=== PATIENT | female | born 1955 | race Caucasian/White ===

== ENCOUNTER 2020-12-11 21:47 | Inpatient (IN) | payer MEDICARE, OTHER ==
[~2020-12-11] VITALS: Ht 160 cm; Wt 112.5 kg
[2020-12-11] MEDS ORDERED: 0.9% SODIUM CHLORIDE 10 ML SYRINGE IVP PRN (22:30)
[2020-12-11] MEDS ORDERED: PIPERACILLIN/TAZO 3.375 GM/D5W 50 ML IV ONE (22:30)
[2020-12-11] MEDS ORDERED: VANCOMYCIN HCL 1.5 GM in DEXTROSE 5%-WATER 250 ML IV ONE (22:30)
[2020-12-11 22:34] LABS: BASOPHILS % (AUTO) 0.2 % (0.0-2.0); EOSINOPHILS % (AUTO) 0.9 % (1.0-6.0); HEMATOCRIT 32.5 % (36-46); HEMOGLOBIN 10.4 g/dL (12.0-16.0); LYMPHOCYTES # (AUTO) 2.3 K/uL (1.0-4.8); LYMPHOCYTES % (AUTO) 18.2 % (22.0-44.0); MEAN CORPUSCULAR HEMOGLOBIN 30.8 pg (26.0-34.0); MEAN CORPUSCULAR HGB CONC 32.1 G/dL (31.0-37.0); MEAN CORPUSCULAR VOLUME 96 fL (80-100); MONOCYTES # (AUTO) 0.8 K/uL (0.1-1.0); MONOCYTES % (AUTO) 6.3 % (2.0-9.0); NEUTROPHILS # (AUTO) 9.6 K/uL (1.8-7.7); NEUTROPHILS % (AUTO) 74.4 % (40.0-70.0); PLATELET COUNT (AUTO) 177 K/uL (150-450); RED BLOOD CELL COUNT(AUTO) 3.38 MIL/uL (4.00-5.20); RED CELL DISTRIBUTION WIDTH 14.4 % (11.5-14.5)
[2020-12-11 22:46] LABS: CALCIUM, TOTAL 9.4 mg/dL (8.8-10.5); CREATININE 3.42 mg/dL (0.60-1.30); POTASSIUM 4.4 mmol/L (3.5-5.1)
[2020-12-11 22:47] LABS: D-DIMER 2.63 mg/L FEU (0.00-0.50); INR 1.1 (0.9-1.1); PROTHROMBIN TIME 11.5 SEC (9.4-11.6)
[2020-12-11 23:09] LABS: COVID AG,FIA SOURCE NASOPHARYNGEAL
[2020-12-11 23:13] LABS: ALBUMIN 3.2 g/dL (3.4-5.0); BILIRUBIN,TOTAL 2.8 mg/dL (0.1-1.0); TOTAL PROTEIN, SERUM 7.6 g/dL (6.4-8.2)
[2020-12-11] MEDS ORDERED: ONDANSETRON HCL 4 MG/2 ML VIAL IVP PRN (23:45)
[2020-12-11] MEDS ORDERED: ACETAMINOPHEN 325 MG TABLET PO PRN (23:45)
[2020-12-11] MEDS ORDERED: HEPARIN SODIUM,PORCINE 5,000 UNITS/ML VIAL IVP PRN ×2 (23:45)
[2020-12-11] MEDS ORDERED: HEPARIN SODIUM,PORCINE 5,000 UNITS/ML VIAL IVP ONE (23:45)
[2020-12-11] MEDS ORDERED: HEPARIN SODIUM 25000 UNITS/D5W 250 ML IV PRN (23:45)
[2020-12-12] MEDS ORDERED: DEXTROSE 50%-WATER 25 GM/50 ML SYRINGE IVP PRN (00:30)
[2020-12-12] MEDS ORDERED: ALBUTEROL SULFATE 2.5 MG/0.5 ML NEB SOLUTION NEB PRN (00:30)
[2020-12-12] MEDS ORDERED: ONDANSETRON HCL 4 MG/2 ML VIAL IVP PRN (00:30)
[2020-12-12] MEDS ORDERED: *CLINICAL-CEFEPIME DOSING CLINICAL ONE (00:30)
[2020-12-12] MEDS ORDERED: ACETAMINOPHEN 325 MG TABLET PO PRN (00:30)
[2020-12-12] MEDS ORDERED: IPRATROPIUM BROMIDE 0.5 MG/2.5 ML NEB SOLUTION NEB PRN (00:30)
[2020-12-12 00:41] LABS: ABG A-A DIFF O2 121.7 mmHg (10-20.0); ABG BASE EXCESS -4.6 mmol/L (-2.0-3.0); ABG CARBOXYHEMOGLOBIN 0.9 % (0.0-1.5); ABG HCO3 20.2 mmol/L (22.0-26.0); ABG METHEMOGLOBIN 0.3 % (0.0-1.5); ABG OXYGEN CONTENT 15.3 mL/dL (15.0-23.0); ABG OXYHEMOGLOBIN 95.8 % (94.0-100.0); ABG PCO2 61 mmHg (35-45); ABG TOTAL HEMOGLOBIN 11.3 G/dL (12.0-18.0); PO2, ARTERIAL BG 92.9 mmHg (79.0-87.0); SOURCE, BLOOD GAS ARTERIAL; TEMPERATURE, FAHRENHEIT, BG 98.6 FAHREN (96.0-98.6)
[2020-12-12 00:42] LABS: SITE, BLOOD GAS LFT RADIAL
[2020-12-12 00:43] LABS: CPAP, BG 14 cm H2O; O2 DEVICE,BLOOD GAS CPAP (ROOM AIR)
[2020-12-12] MEDS ORDERED: VANCOMYCIN HCL 1 GM/D5% WATER 200 ML IV PRN (00:45)
[2020-12-12 01:18] LABS: APPEARANCE,URINE TURBID (CLEAR); BILIRUBIN,URINE NEGATIVE (NEGATIVE); GLUCOSE, URINE (UA) 250 mg/dL (NEGATIVE); KETONES,URINE NEGATIVE (NEGATIVE); LEUKOCYTE ESTERASE ,URINE MODERATE (NEGATIVE); NITRATE,URINE NEGATIVE (NEGATIVE); OCCULT BLOOD,URINE SMALL (NEGATIVE); PROTEIN,URINE TRACE (NEGATIVE); UROBILINOGEN,URINE 0.2 mg/dL (<=1.0)
[2020-12-12 01:24] LABS: CREATININE,URINE RANDOM 70.6 mg/dL (30.0-125.0)
[2020-12-12 01:36] LABS: RBC,URINE 0-2 /HPF (0-2)
[2020-12-12 01:37] LABS: BACTERIA,URINE Many /HPF (None Seen)
[2020-12-12] MEDS ORDERED: VANCOMYCIN HCL 750 MG in DEXTROSE 5%-WATER 250 ML IV ONE (03:00)
[2020-12-12 03:12] VITALS: BP 102/64
[2020-12-12] MEDS ORDERED: SODIUM CHLORIDE 0.9% 500 ML IV ONE (04:14)
[2020-12-12] MEDS ORDERED: CEFEPIME HCL 1 GM in DEXTROSE 5%-WATER 50 ML IV SCH (05:00)
[2020-12-12] MEDS ORDERED: MORPHINE SULFATE 10 MG/5 ML SOLUTION UDCUP SL PRN (06:00)
[2020-12-12] MEDS: INSULIN LISPRO 100 UNITS/ML SQ PRN ×3 (06:03→20:43)
[2020-12-12 06:49] LABS: GLUCOMETER DEV NAME(LOC) 6S.1; GLUCOSE,POINT OF CARE 320 MG/DL (70-110)
[2020-12-12 07:52] VITALS: BP 87/65
[2020-12-12] MEDS ORDERED: SODIUM CHLORIDE 0.9% 1,000 ML IV SCH (08:15)
[2020-12-12] MEDS: DEXTROSE 5%-0.9% SODIUM CHL 1,000 ML IV SCH (14:35)
[2020-12-12 15:57] VITALS: BP 65/40
[2020-12-12] MEDS ORDERED: SODIUM CHLORIDE 0.9% 250 ML IV ONE ×2 (16:15→19:15)
[2020-12-12 17:17] VITALS: BP 85/39
[2020-12-12 17:56] VITALS: BP 90/34
[2020-12-12] MEDS: CefTRIAXone 1 GM/DEXTROSE 50 ML IV SCH (18:16)
[2020-12-12 20:08] LABS: GLUCOMETER DEV NAME(LOC) 6N.1; GLUCOSE,POINT OF CARE 285 MG/DL (70-110)
[2020-12-12 20:08] LABS: GLUCOMETER DEV NAME(LOC) 6N.1; GLUCOSE,POINT OF CARE 252 MG/DL (70-110)
[2020-12-12 20:16] VITALS: BP 81/42
[2020-12-13 00:17] LABS: GLUCOMETER DEV NAME(LOC) 6N.1; GLUCOSE,POINT OF CARE 231 MG/DL (70-110)
[2020-12-13 04:44] VITALS: BP 84/42
[2020-12-13] MEDS: INSULIN LISPRO 100 UNITS/ML SQ PRN ×2 (05:58→11:29)
[2020-12-13] MEDS: DEXTROSE 5%-0.9% SODIUM CHL 1,000 ML IV SCH ×2 (05:58→10:38)
[2020-12-13 08:01] VITALS: BP 80/32
[2020-12-13 14:12] LABS: ABG A-A DIFF O2 80.7 mmHg (10-20.0); ABG BASE EXCESS -10.7 mmol/L (-2.0-3.0); ABG CARBOXYHEMOGLOBIN 0.2 % (0.0-1.5); ABG METHEMOGLOBIN 0.4 % (0.0-1.5); ABG OXYGEN CONTENT 14.8 mL/dL (15.0-23.0); ABG OXYGEN SATURATION 95.7 % (95.0-98.0); ABG OXYHEMOGLOBIN 95.1 % (94.0-100.0); ABG PCO2 53 mmHg (35-45); PO2, ARTERIAL BG 85.8 mmHg (79.0-87.0); SOURCE, BLOOD GAS ARTERIAL; TEMPERATURE, FAHRENHEIT, BG 97.4 FAHREN (96.0-98.6)
[2020-12-13 14:15] LABS: ABG PH 7.151 (7.35-7.450); O2 DEVICE,BLOOD GAS CANNULA (ROOM AIR); SITE, BLOOD GAS LFT RADIAL
[2020-12-13] MEDS ORDERED: SODIUM BICARBONATE 650 MG TABLET PO SCH (14:30)
[2020-12-13 15:22] VITALS: BP 84/65
[2020-12-13] MEDS: CefTRIAXone 1 GM/DEXTROSE 50 ML IV SCH (15:22)
[2020-12-13] MEDS ORDERED: SODIUM BICARBONATE [ADULT] 8.4% 50 MEQ/50 ML SYRINGE IVP ONE (17:15)
[2020-12-13] MEDS ORDERED: RINGERS SOLUTION,LACTATED 1,000 ML IV SCH (18:00)
[2020-12-13 18:19] LABS: BASOPHILS % (AUTO) 0.6 % (0.0-2.0); HEMATOCRIT 30.2 % (36-46); HEMOGLOBIN 9.7 g/dL (12.0-16.0); LYMPHOCYTES # (AUTO) 1.4 K/uL (1.0-4.8); MEAN CORPUSCULAR HEMOGLOBIN 31.1 pg (26.0-34.0); MEAN CORPUSCULAR VOLUME 97 fL (80-100); MONOCYTES # (AUTO) 0.6 K/uL (0.1-1.0); MONOCYTES % (AUTO) 6.9 % (2.0-9.0); NEUTROPHILS # (AUTO) 6.3 K/uL (1.8-7.7); NEUTROPHILS % (AUTO) 72.5 % (40.0-70.0); PLATELET COUNT (AUTO) 182 K/uL (150-450); RED BLOOD CELL COUNT(AUTO) 3.11 MIL/uL (4.00-5.20); RED CELL DISTRIBUTION WIDTH 14.8 % (11.5-14.5)
[2020-12-13 18:29] LABS: CALCIUM, TOTAL 8.1 mg/dL (8.8-10.5); CREATININE 6.91 mg/dL (0.60-1.30); POTASSIUM 4.6 mmol/L (3.5-5.1)
[2020-12-13 18:34] LABS: ALBUMIN 2.3 g/dL (3.4-5.0); BILIRUBIN,TOTAL 0.4 mg/dL (0.1-1.0); TOTAL PROTEIN, SERUM 6.4 g/dL (6.4-8.2)
[2020-12-13 19:25] LABS: GLUCOMETER DEV NAME(LOC) 6S.1; GLUCOSE,POINT OF CARE 237 MG/DL (70-110)
[2020-12-13 19:25] LABS: GLUCOMETER DEV NAME(LOC) 6N.1; GLUCOSE,POINT OF CARE 257 MG/DL (70-110)
[2020-12-13 19:25] LABS: GLUCOMETER DEV NAME(LOC) 6S.1; GLUCOSE,POINT OF CARE 252 MG/DL (70-110)
[2020-12-13 20:00] VITALS: BP 81/111
[2020-12-13 22:43] LABS: GLUCOSE,POINT OF CARE 169 MG/DL (70-110)
[2020-12-14] VITALS (7 sets, daily range): BP systolic 91–150; BP diastolic 46–73
[2020-12-14] MEDS: SODIUM CHLORIDE 0.9% 1,000 ML IV SCH ×2 (00:47→13:44)
[2020-12-14 05:47] LABS: BASOPHILS % (AUTO) 0.5 % (0.0-2.0); EOSINOPHILS % (AUTO) 6.3 % (1.0-6.0); HEMATOCRIT 28.6 % (36-46); HEMOGLOBIN 9.1 g/dL (12.0-16.0); LYMPHOCYTES # (AUTO) 1.4 K/uL (1.0-4.8); LYMPHOCYTES % (AUTO) 19.5 % (22.0-44.0); MEAN CORPUSCULAR VOLUME 97 fL (80-100); MONOCYTES # (AUTO) 0.6 K/uL (0.1-1.0); MONOCYTES % (AUTO) 7.9 % (2.0-9.0); NEUTROPHILS # (AUTO) 4.7 K/uL (1.8-7.7); NEUTROPHILS % (AUTO) 65.8 % (40.0-70.0); PLATELET COUNT (AUTO) 176 K/uL (150-450); RED BLOOD CELL COUNT(AUTO) 2.95 MIL/uL (4.00-5.20); RED CELL DISTRIBUTION WIDTH 14.5 % (11.5-14.5)
[2020-12-14 06:11] LABS: ALBUMIN 2.3 g/dL (3.4-5.0); BILIRUBIN,TOTAL 0.4 mg/dL (0.1-1.0); CALCIUM, TOTAL 8.3 mg/dL (8.8-10.5); CREATININE 7.77 mg/dL (0.60-1.30); POTASSIUM 4.4 mmol/L (3.5-5.1); TOTAL PROTEIN, SERUM 6.3 g/dL (6.4-8.2)
[2020-12-14 06:31] LABS: PHOSPHORUS 10.2 mg/dL (2.5-4.9)
[2020-12-14 06:52] LABS: GLUCOSE,POINT OF CARE 152 MG/DL (70-110)
[2020-12-14] MEDS ORDERED: FLUMAZENIL 0.1 MG/ML 5 ML VIAL IVP ONE (11:00)
[2020-12-14] MEDS ORDERED: FentaNYL CITRATE PF 100 MCG/2 ML VIAL ONE (11:00)
[2020-12-14] MEDS ORDERED: NALOXONE HCL 0.4 MG/ML VIAL ONE (11:00)
[2020-12-14] MEDS ORDERED: MIDAZOLAM HCL 2 MG/2 ML VIAL ONE (11:00)
[2020-12-14 11:26] LABS: GLUCOSE,POINT OF CARE 138 MG/DL (70-110)
[2020-12-14] MEDS ORDERED: HEPARIN SODIUM,PORCINE 1,000 UNITS/ML 10 ML VIAL ONE (11:58)
[2020-12-14] MEDS ORDERED: LIDOCAINE/PF 1% 30 ML VIAL ONE (11:59)
[2020-12-14] MEDS ORDERED: HEPARIN SODIUM 1000 UNITS/NS 500 ML ONE (12:33)
[2020-12-14 16:39] LABS: GLUCOSE,POINT OF CARE 152 MG/DL (70-110)
[2020-12-14] MEDS: CefTRIAXone 1 GM/DEXTROSE 50 ML IV SCH (16:47)
[2020-12-14 17:37] LABS: GLUCOSE,POINT OF CARE 120 MG/DL (70-110)
[2020-12-14] MEDS ORDERED: HEPARIN SODIUM,PORCINE 1,000 UNITS/ML VIAL IVP ONE (17:52)
[2020-12-14 20:33] LABS: GLUCOSE,POINT OF CARE 110 MG/DL (70-110)
[2020-12-15] VITALS (7 sets, daily range): BP systolic 105–137; BP diastolic 56–71
[2020-12-15] MEDS: SODIUM CHLORIDE 0.9% 1,000 ML IV SCH ×2 (02:00→13:54)
[2020-12-15 05:54] LABS: BILIRUBIN,TOTAL 0.5 mg/dL (0.1-1.0); CALCIUM, TOTAL 8.1 mg/dL (8.8-10.5); CREATININE 6.24 mg/dL (0.60-1.30); POTASSIUM 5.8 mmol/L (3.5-5.1); TOTAL PROTEIN, SERUM 6.4 g/dL (6.4-8.2)
[2020-12-15] MEDS: ACETAMINOPHEN 325 MG TABLET PO PRN ×2 (09:58→17:46)
[2020-12-15 13:16] LABS: GLUCOSE,POINT OF CARE 120 MG/DL (70-110)
[2020-12-15] MEDS: CefTRIAXone 1 GM/DEXTROSE 50 ML IV SCH (16:00)
[2020-12-15 19:29] LABS: GLUCOSE,POINT OF CARE 124 MG/DL (70-110)
[2020-12-15 22:52] LABS: GLUCOSE,POINT OF CARE 127 MG/DL (70-110)
[2020-12-16] VITALS (8 sets, daily range): BP systolic 139–171; BP diastolic 67–90
[2020-12-16 05:30] LABS: ALBUMIN 2.4 g/dL (3.4-5.0); BILIRUBIN,TOTAL 0.3 mg/dL (0.1-1.0); CALCIUM, TOTAL 8.5 mg/dL (8.8-10.5); CREATININE 4.38 mg/dL (0.60-1.30); POTASSIUM 4.1 mmol/L (3.5-5.1); TOTAL PROTEIN, SERUM 6.7 g/dL (6.4-8.2)
[2020-12-16] MEDS ORDERED: ETHYL ALCOHOL 62% ANTISEPTIC NASAL INHALANT 0.6 ML AMPUL NASAL SCH (09:00)
[2020-12-16] MEDS ORDERED: *CLINICAL-MEROPENEM DOSING CLINICAL ONE (12:00)
[2020-12-16] MEDS ORDERED: MEROPENEM 1 GM in SODIUM CHLORIDE 0.9% 100 ML IV ONE (12:15)
[2020-12-16 12:46] LABS: GLUCOSE,POINT OF CARE 105 MG/DL (70-110)
[2020-12-16] MEDS: CefTRIAXone 1 GM/DEXTROSE 50 ML IV SCH (16:40)
[2020-12-16] MEDS ORDERED: HEPARIN SODIUM,PORCINE 1,000 UNITS/ML VIAL IVP ONE (18:11)
[2020-12-16 19:47] LABS: GLUCOSE,POINT OF CARE 111 MG/DL (70-110)
[2020-12-16] MEDS ORDERED: DEXTROSE 5%-0.9% SODIUM CHL 1,000 ML IV SCH (20:00)
[2020-12-16] MEDS ORDERED: RINGERS SOLUTION,LACTATED 1,000 ML IV SCH (20:00)
[2020-12-16 20:29] LABS: BASOPHILS % (AUTO) 0.8 % (0.0-2.0); EOSINOPHILS % (AUTO) 4.2 % (1.0-6.0); HEMATOCRIT 34.9 % (36-46); HEMOGLOBIN 11.2 g/dL (12.0-16.0); LYMPHOCYTES # (AUTO) 1.5 K/uL (1.0-4.8); MEAN CORPUSCULAR HEMOGLOBIN 30.9 pg (26.0-34.0); MEAN CORPUSCULAR HGB CONC 32.2 G/dL (31.0-37.0); MEAN CORPUSCULAR VOLUME 96 fL (80-100); MONOCYTES # (AUTO) 0.6 K/uL (0.1-1.0); MONOCYTES % (AUTO) 8.9 % (2.0-9.0); NEUTROPHILS % (AUTO) 62.1 % (40.0-70.0); PLATELET COUNT (AUTO) 188 K/uL (150-450); RED BLOOD CELL COUNT(AUTO) 3.63 MIL/uL (4.00-5.20); RED CELL DISTRIBUTION WIDTH 14.2 % (11.5-14.5)
[2020-12-16 20:39] LABS: CALCIUM, TOTAL 8.9 mg/dL (8.8-10.5); CREATININE 5.28 mg/dL (0.60-1.30); POTASSIUM 4.7 mmol/L (3.5-5.1)
[2020-12-16 20:47] LABS: ALBUMIN 2.7 g/dL (3.4-5.0); BILIRUBIN,TOTAL 0.3 mg/dL (0.1-1.0); MAGNESIUM 2.2 mg/dL (1.80-2.40); TOTAL PROTEIN, SERUM 7.4 g/dL (6.4-8.2)
[2020-12-16 21:41] LABS: GLUCOMETER DEV NAME(LOC) 5N.1C; GLUCOSE,POINT OF CARE 120 MG/DL (70-110)
[2020-12-17 04:26] VITALS: BP 146/75
[2020-12-17 07:13] VITALS: BP 158/85
[2020-12-17 07:15] LABS: GLUCOMETER DEV NAME(LOC) 5N.1C; GLUCOSE,POINT OF CARE 127 MG/DL (70-110)
[2020-12-17 07:45] LABS: ALBUMIN 2.7 g/dL (3.4-5.0); BILIRUBIN,TOTAL 0.3 mg/dL (0.1-1.0); CREATININE 5.58 mg/dL (0.60-1.30); POTASSIUM 4.8 mmol/L (3.5-5.1); TOTAL PROTEIN, SERUM 7.3 g/dL (6.4-8.2)
[2020-12-17] MEDS: EPOETIN ALFA 10,000 UNITS/ML VIAL SQ SCH (09:16)
[2020-12-17] MEDS ORDERED: ACETAMINOPHEN 650 MG RECTAL SUPPOSITORY PR PRN (10:15)
[2020-12-17 10:59] VITALS: BP 157/83
[2020-12-17 14:40] VITALS: BP 146/78
[2020-12-17] MEDS: MEROPENEM 500 MG in SODIUM CHLORIDE 0.9% 50 ML IV SCH (16:58)
[2020-12-17] MEDS ORDERED: SODIUM CHLORIDE 0.9% 250 ML IV ONE (17:07)
[2020-12-17] MEDS ORDERED: SODIUM CHLORIDE 0.9% 1,000 ML ONE (18:27)
[2020-12-17 19:07] VITALS: BP 171/61
[2020-12-17 20:03] LABS: GLUCOMETER DEV NAME(LOC) 5S.2B; GLUCOSE,POINT OF CARE 148 MG/DL (70-110)
[2020-12-17 23:50] VITALS: BP 119/56
[2020-12-18 04:23] VITALS: BP 146/66
[2020-12-18 06:58] LABS: GLUCOMETER DEV NAME(LOC) 5S.2B; GLUCOSE,POINT OF CARE 148 MG/DL (70-110)
[2020-12-18 07:03] LABS: ALBUMIN 2.7 g/dL (3.4-5.0); BILIRUBIN,TOTAL 0.4 mg/dL (0.1-1.0); CALCIUM, TOTAL 8.7 mg/dL (8.8-10.5); CREATININE 3.16 mg/dL (0.60-1.30); POTASSIUM 4.6 mmol/L (3.5-5.1)
[2020-12-18 08:35] VITALS: BP 156/90
[2020-12-18] MEDS ORDERED: FLUMAZENIL 0.1 MG/ML 5 ML VIAL IVP ONE (10:35)
[2020-12-18] MEDS ORDERED: MIDAZOLAM HCL 2 MG/2 ML VIAL ONE (10:35)
[2020-12-18] MEDS ORDERED: NALOXONE HCL 0.4 MG/ML VIAL ONE (10:35)
[2020-12-18] MEDS ORDERED: FentaNYL CITRATE PF 100 MCG/2 ML VIAL ONE (10:35)
[2020-12-18] MEDS ORDERED: LIDOCAINE 1%/EPI 1:200,000/PF 10 ML VIAL ONE (11:54)
[2020-12-18] MEDS ORDERED: HEPARIN SODIUM,PORCINE 1,000 UNITS/ML 10 ML VIAL ONE (11:55)
[2020-12-18] MEDS ORDERED: MIDAZOLAM HCL 2 MG/2 ML VIAL IVP ONE ×2 (12:00→12:20)
[2020-12-18] MEDS ORDERED: FentaNYL CITRATE PF 100 MCG/2 ML VIAL IVP ONE (12:20)
[2020-12-18 12:30] VITALS: BP 134/67
[2020-12-18 15:30] VITALS: BP 153/74
[2020-12-18] MEDS ORDERED: MANNITOL 25%-12.5 GM/50 ML VIAL IVP ONE (15:32)
[2020-12-18] MEDS ORDERED: HEPARIN SODIUM,PORCINE 1,000 UNITS/ML VIAL IVP ONE (15:33)
[2020-12-18] MEDS: MEROPENEM 500 MG in SODIUM CHLORIDE 0.9% 50 ML IV SCH (16:33)
[2020-12-18 17:46] LABS: GLUCOMETER DEV NAME(LOC) 5S.2B; GLUCOSE,POINT OF CARE 150 MG/DL (70-110)
[2020-12-18 17:46] LABS: GLUCOMETER DEV NAME(LOC) 5S.2B; GLUCOSE,POINT OF CARE 126 MG/DL (70-110)
[2020-12-18 19:41] VITALS: BP 151/78
[2020-12-18 23:28] VITALS: BP 142/73
[2020-12-18 23:43] LABS: GLUCOMETER DEV NAME(LOC) 5S.1; GLUCOSE,POINT OF CARE 128 MG/DL (70-110)
[2020-12-19 03:01] VITALS: BP 150/74
[2020-12-19 08:12] LABS: GLUCOMETER DEV NAME(LOC) 5N.1C; GLUCOSE,POINT OF CARE 118 MG/DL (70-110)
[2020-12-19 08:18] VITALS: BP 157/88
[2020-12-19] MEDS: EPOETIN ALFA 10,000 UNITS/ML VIAL SQ SCH (10:16)
[2020-12-19 10:26] LABS: BASOPHILS % (AUTO) 0.9 % (0.0-2.0); EOSINOPHILS % (AUTO) 5.4 % (1.0-6.0); HEMATOCRIT 30.9 % (36-46); LYMPHOCYTES # (AUTO) 1.8 K/uL (1.0-4.8); MEAN CORPUSCULAR HEMOGLOBIN 30.9 pg (26.0-34.0); MEAN CORPUSCULAR HGB CONC 32.3 G/dL (31.0-37.0); MEAN CORPUSCULAR VOLUME 96 fL (80-100); MONOCYTES # (AUTO) 0.5 K/uL (0.1-1.0); MONOCYTES % (AUTO) 6.9 % (2.0-9.0); NEUTROPHILS # (AUTO) 4.7 K/uL (1.8-7.7); NEUTROPHILS % (AUTO) 62.8 % (40.0-70.0); PLATELET COUNT (AUTO) 231 K/uL (150-450); RED BLOOD CELL COUNT(AUTO) 3.23 MIL/uL (4.00-5.20); RED CELL DISTRIBUTION WIDTH 14.1 % (11.5-14.5)
[2020-12-19 10:42] LABS: ALBUMIN 2.7 g/dL (3.4-5.0); BILIRUBIN,TOTAL 0.4 mg/dL (0.1-1.0); CALCIUM, TOTAL 8.6 mg/dL (8.8-10.5); CREATININE 3.89 mg/dL (0.60-1.30); TOTAL PROTEIN, SERUM 6.9 g/dL (6.4-8.2)
[2020-12-19] MEDS ORDERED: FentaNYL CITRATE PF 100 MCG/2 ML VIAL IVP ONE (12:00)
[2020-12-19] MEDS ORDERED: HEPARIN SODIUM,PORCINE 1,000 UNITS/ML VIAL IVP ONE ×3 (12:00→14:15)
[2020-12-19] MEDS ORDERED: MIDAZOLAM HCL 2 MG/2 ML VIAL IVP ONE (12:00)
[2020-12-19 12:02] VITALS: BP 110/62
[2020-12-19] MEDS ORDERED: MANNITOL 25%-12.5 GM/50 ML VIAL IVP PRN (14:15)
[2020-12-19 16:26] VITALS: BP 143/72
[2020-12-19] MEDS: MEROPENEM 500 MG in SODIUM CHLORIDE 0.9% 50 ML IV SCH (17:30)
[2020-12-19 19:08] LABS: GLUCOMETER DEV NAME(LOC) 5S.2B; GLUCOSE,POINT OF CARE 109 MG/DL (70-110)
[2020-12-19 20:05] VITALS: BP 141/74
[2020-12-19 21:49] LABS: GLUCOMETER DEV NAME(LOC) 5S.1; GLUCOSE,POINT OF CARE 113 MG/DL (70-110)
[2020-12-19 21:49] LABS: GLUCOMETER DEV NAME(LOC) 5S.1; GLUCOSE,POINT OF CARE 112 MG/DL (70-110)
[2020-12-20 00:20] VITALS: BP 114/81
[2020-12-20 04:33] VITALS: BP 136/66
[2020-12-20 06:17] LABS: GLUCOMETER DEV NAME(LOC) 5N.3; GLUCOSE,POINT OF CARE 120 MG/DL (70-110)
[2020-12-20 08:26] VITALS: BP 140/70
[2020-12-20 10:28] LABS: ALBUMIN 2.8 g/dL (3.4-5.0); BILIRUBIN,TOTAL 0.4 mg/dL (0.1-1.0); CALCIUM, TOTAL 9.3 mg/dL (8.8-10.5); CREATININE 2.63 mg/dL (0.60-1.30); TOTAL PROTEIN, SERUM 6.8 g/dL (6.4-8.2)
[2020-12-20] MEDS: HEPARIN SODIUM,PORCINE 5,000 UNITS/ML VIAL SQ SCH ×2 (10:51→16:34)
[2020-12-20 11:03] LABS: BASOPHILS % (AUTO) 0.8 % (0.0-2.0); EOSINOPHILS % (AUTO) 5.1 % (1.0-6.0); HEMATOCRIT 33.9 % (36-46); HEMOGLOBIN 10.8 g/dL (12.0-16.0); LYMPHOCYTES # (AUTO) 1.8 K/uL (1.0-4.8); LYMPHOCYTES % (AUTO) 25.5 % (22.0-44.0); MEAN CORPUSCULAR HEMOGLOBIN 30.7 pg (26.0-34.0); MEAN CORPUSCULAR HGB CONC 31.9 G/dL (31.0-37.0); MEAN CORPUSCULAR VOLUME 96 fL (80-100); MONOCYTES # (AUTO) 0.5 K/uL (0.1-1.0); MONOCYTES % (AUTO) 7.7 % (2.0-9.0); NEUTROPHILS # (AUTO) 4.2 K/uL (1.8-7.7); NEUTROPHILS % (AUTO) 60.9 % (40.0-70.0); PLATELET COUNT (AUTO) 239 K/uL (150-450); RED BLOOD CELL COUNT(AUTO) 3.52 MIL/uL (4.00-5.20); RED CELL DISTRIBUTION WIDTH 14.6 % (11.5-14.5)
[2020-12-20 12:06] VITALS: BP 130/72
[2020-12-20] MEDS: INSULIN LISPRO 100 UNITS/ML SQ PRN ×2 (12:24→18:05)
[2020-12-20 13:10] LABS: GLUCOMETER DEV NAME(LOC) 5S.2B; GLUCOSE,POINT OF CARE 148 MG/DL (70-110)
[2020-12-20] MEDS ORDERED: ACETAMINOPHEN 325 MG TABLET PO PRN (13:30)
[2020-12-20] MEDS ORDERED: EPOE10003 SQ (14:22)
[2020-12-20] MEDS ORDERED: HEPA500018 SQ (14:23)
[2020-12-20] MEDS ORDERED: MERO500P IVPB (14:25)
[2020-12-20] MEDS ORDERED: ACET-2247 PO (14:26)
[2020-12-20] MEDS ORDERED: A20IH1 NEB (14:26)
[2020-12-20] MEDS ORDERED: D50SYG IVP (14:31)
[2020-12-20] MEDS ORDERED: IPRNEB IH (14:50)
[2020-12-20] MEDS ORDERED: INSU100V SQ (14:54)
[2020-12-20 15:33] VITALS: BP 123/71
[2020-12-20] MEDS: MEROPENEM 500 MG in SODIUM CHLORIDE 0.9% 50 ML IV SCH (16:34)
[2020-12-20 16:35] LABS: ABG A-A DIFF O2 151.4 mmHg (10-20.0); ABG BASE EXCESS -4.3 mmol/L (-2.0-3.0); ABG CARBOXYHEMOGLOBIN 0.4 % (0.0-1.5); ABG HCO3 20.9 mmol/L (22.0-26.0); ABG METHEMOGLOBIN 0.3 % (0.0-1.5); ABG OXYGEN CONTENT 14.8 mL/dL (15.0-23.0); ABG OXYHEMOGLOBIN 96.3 % (94.0-100.0); ABG PCO2 46 mmHg (35-45); ABG TOTAL HEMOGLOBIN 10.8 G/dL (12.0-18.0); PO2, ARTERIAL BG 95.4 mmHg (79.0-87.0); SOURCE, BLOOD GAS ARTERIAL; TEMPERATURE, FAHRENHEIT, BG 98.6 FAHREN (96.0-98.6)
[2020-12-20 16:36] LABS: O2 DEVICE,BLOOD GAS CANNULA (ROOM AIR); SITE, BLOOD GAS LFT RADIAL
[2020-12-20 19:10] LABS: GLUCOMETER DEV NAME(LOC) 5S.1; GLUCOSE,POINT OF CARE 177 MG/DL (70-110)
== END 2020-12-20 19:15 | DRG 871 ==
LOC: EMS 21:51 → UNDOADMIN 12-12 00:31 → ICU 12-12 00:31 → 6N 12-12 00:31 → ICU 12-13 17:01 → 5S 12-16 19:05
PROVIDERS: ADMIT Internal Medicine; ATTEND Internal Medicine
PROC: 5A09357 Assistance with Respiratory Ventilation, Less than 24 Consecutive Hours, Continuous Positive Airway Pressure (ICD-10-PCS; principal; 2020-12-14)
PROC: 5A1D70Z Performance of Urinary Filtration, Intermittent, Less than 6 Hours Per Day (ICD-10-PCS; 2020-12-14)
PROC: 5A1D70Z Performance of Urinary Filtration, Intermittent, Less than 6 Hours Per Day (ICD-10-PCS; 2020-12-15)
PROC: 5A1D70Z Performance of Urinary Filtration, Intermittent, Less than 6 Hours Per Day (ICD-10-PCS; 2020-12-17)
PROC: 0JH63XZ Insertion of Tunneled Vascular Access Device into Chest Subcutaneous Tissue and Fascia, Percutaneous Approach (ICD-10-PCS; 2020-12-18)
PROC: 02HV33Z Insertion of Infusion Device into Superior Vena Cava, Percutaneous Approach (ICD-10-PCS; 2020-12-18)
PROC: B5181ZA Fluoroscopy of Superior Vena Cava using Low Osmolar Contrast, Guidance (ICD-10-PCS; 2020-12-18)
PROC: B548ZZA Ultrasonography of Superior Vena Cava, Guidance (ICD-10-PCS; 2020-12-18)
PROC: 5A1D70Z Performance of Urinary Filtration, Intermittent, Less than 6 Hours Per Day (ICD-10-PCS; 2020-12-19)
DX: A41.51 Sepsis due to Escherichia coli [E. coli] (principal); J96.02 Acute respiratory failure with hypercapnia; J69.0 Pneumonitis due to inhalation of food and vomit; J96.01 Acute respiratory failure with hypoxia; G92.8 Other toxic encephalopathy; N17.9 Acute kidney failure, unspecified; E44.0 Moderate protein-calorie malnutrition; Z68.41 Body mass index [BMI] 40.0-44.9, adult; M62.82 Rhabdomyolysis; I13.0 Hypertensive heart and chronic kidney disease with heart failure and stage 1 through stage 4 chronic kidney disease, or unspecified chronic kidney disease; E87.4 Mixed disorder of acid-base balance; N39.0 Urinary tract infection, site not specified; Z16.12 Extended spectrum beta lactamase (ESBL) resistance; Z66 Do not resuscitate; R65.20 Severe sepsis without septic shock; J47.9 Bronchiectasis, uncomplicated; D63.1 Anemia in chronic kidney disease; I07.1 Rheumatic tricuspid insufficiency; E11.65 Type 2 diabetes mellitus with hyperglycemia; E87.5 Hyperkalemia; E66.01 Morbid (severe) obesity due to excess calories; E11.22 Type 2 diabetes mellitus with diabetic chronic kidney disease; I27.20 Pulmonary hypertension, unspecified; I50.9 Heart failure, unspecified; N18.9 Chronic kidney disease, unspecified; B96.20 Unspecified Escherichia coli [E. coli] as the cause of diseases classified elsewhere; R74.8 Abnormal levels of other serum enzymes; Z20.822 Contact with and (suspected) exposure to COVID-19; Z86.16 Personal history of COVID-19; Z86.73 Personal history of transient ischemic attack (TIA), and cerebral infarction without residual deficits; Z86.718 Personal history of other venous thrombosis and embolism; Z93.0 Tracheostomy status; Z51.5 Encounter for palliative care
CPT/HCPCS: 36245; 36556; 36561; 36569; 36600; 51702; 71045; 71250; 74230; 76000; 76705; 76770; 76937; 80053; 81001; 82436; 82550; 82570; 82805; 82962; 83605; 83735; 83880; 84100; 84145; 84300; 84484; 85025; 85379; 85610; 85730; 87040; 87077; 87081; 87086; 87186; 87340; 87449; 90935; 92526; 92610; 92611; 93005; 93306; 94660; 97162; 99291; G0378; J0692; J0696; J0885; J1644; J2150; J2185; J2250; J2310; J2543; J3010; J3370; J3490; J7030; J7040; J7042; J7050; J7060; J7120; 36415-L1; 36415-TC